=== PATIENT | male | born 1935 | race Caucasian/White ===

== ENCOUNTER → 2025-03-14 11:00 | Outpatient (REF) | payer OTHER, SELFPAY | LOC: HWRCS 11:00 | PROVIDERS: ATTENDING PHYSICIAN Family Medicine | DX: R01.1 Cardiac murmur, unspecified (principal) | CPT/HCPCS: 93306 ==

== ENCOUNTER 2025-06-29 11:52 | Emergency (ER) | payer OTHER, SELFPAY ==
[2025-06-29 11:59] VITALS: BP 169/99
[2025-06-29 12:19] LABS: Hematocrit 44.4 % (39.0-52.0); Hemoglobin 15.8 g/dL (13.0-18.0); Mean Corp Hgb Conc. 35.6 g/dL (33.0-37.0); Mean Corpuscular Volume 87.6 fL (80.0-94.0); Nucleated Red Blood Cells % 0 % (-); Platelet Count 173 10^3/uL (130-400); Red Cell Dist. Width 13.2 % (11.5-14.5)
[2025-06-29 12:42] LABS: ALT (SGPT) 27 U/L (0-50); AST (SGOT) 30 U/L (17-59); Albumin 3.9 g/dl (3.5-5.0); Alkaline Phosphatase 72 U/L (38-126); Blood Urea Nitrogen 21 mg/dl (9-20); Calcium 10.3 mg/dl (8.4-10.2); Carbon Dioxide 26 mmol/L (22-30); Chloride 102 mmol/L (98-107); Glucose 113 mg/dl (70-99); Potassium 3.6 mmol/L (3.5-5.1); Sodium 134 mmol/L (135-145); Total Protein 7.4 g/dl (6.3-8.2); eGFR 57.81
--- NOTE | 2025-06-29 16:59 | ED.GENMED ---
History of Present Illness
<MILLER Gilmore - Last Filed: 06/29/25 18:38>
General
Chief Complaint: DVT/Possible Blood Clot
Source: patient and spouse
Exam Limitations: none
Time Seen by Provider: 06/29/25 16:38
Nursing documentation reviewed up to this point in time: agreed with
History of Present Illness
History of Present Illness:
Patient is a 89-year-old male presents to the ER for evaluation of redness to right lower leg for the past 1-2 days. He has had a fever as high as 101.
He does complain of mild swelling to the right lower leg ankle area I was concerned about a blood clot. No prior history of blood clot.
He denies any injury shortness of breath. 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 In addition he has his a family doctor appointment tomorrow.
Past History
<MILLER Gilmore - Last Filed: 06/29/25 18:38>
Past History
ED Past Medical History: HTN and Other (BPH)
ED Past Surgical History: Tonsilectomy and Other (Nephrectomy, left and right inguinal hernias, BPH)
Social History
Personal:
Living: with family
Employment: Retired
Phy Exam
<MILLER Gilmore - Last Filed: 06/29/25 18:38>
General Physical Exam
General Presentation: no apparent distress
General age: appears stated age
General Skin: warm and dry
General Habitus: normal
General Mental: alert
General Hydration: appears well hydrated
Neurological Exam
Neurological Exam: alert and oriented x3
Musculoskeletal Exam
Musculoskeletal Exam: other (rle with strong pulses + erythema to right lower leg ankle region ; no calf tenderness or swelling to calf )
Skin Exam
Skin Exam: normal color and warm/dry
Psychiatric Exam
Psychiatric Exam: normal mood/affect
Course
<MILLER Gilmore - Last Filed: 06/29/25 18:38>
Orders/Labs/Results
Orders:
Orders
06/29/25 12:04
Venous Doppler Lwr Ext Rt [US Periph Venous LOWER Ext RT] Urgent
Comment:
Reason For Exam: redness/ swelling
06/29/25 12:10
CMP [Comprehensive Metabolic Panel] Urgent
Complete Blood Count/With Diff Urgent
06/29/25 18:33
Doxycycline [Vibramycin] 100 mg PO NOW STA
Abnormal Lab Results
06/29/25
12:10
WBC 11.4 H 10^3/uL
(4.8-10.8)
MCH 31.2 H pg
(27.0-31.0)
Abs Immat Gran (auto) 0.1 H 10^3/uL
(0-0.05)
Absolute Neuts (auto) 8.3 H 10^3/uL
(1.4-6.5)
Absolute Monos (auto) 1.4 H 10^3/uL
(0.1-0.6)
Lymphocytes % 11.5 L %
(20.5-51.1)
Monocytes % 12.6 H %
(1.7-9.3)
Sodium 134 L mmol/L
(135-145)
BUN 21 H mg/dl
(9-20)
Glucose 113 H mg/dl
(70-99)
Calcium 10.3 H mg/dl
(8.4-10.2)
06/29/25 12:10
06/29/25 12:10
Vital Signs
Initial and Last Documented VS:
Initial Vital Signs
Temp Pulse Resp BP Pulse Ox
98.9 F 106 20 169/99 98
06/29/25 11:59 06/29/25 11:59 06/29/25 11:59 06/29/25 11:59 06/29/25 11:59
Last Documented Vital Signs
Temp Pulse Resp BP Pulse Ox
98.0 F 112 18 107/67 93
06/29/25 18:28 06/29/25 18:28 06/29/25 18:28 06/29/25 18:28 06/29/25 18:28
Licensed Pesticide Applicator consulted with Physician
Licensed Pesticide Applicator consulted with physician?: Yes
Name of Physician Consulted: [email or web address]
<Ashwini Roca MD - Last Filed: 06/29/25 18:33>
Orders/Labs/Results
Orders:
Orders
06/29/25 12:04
Venous Doppler Lwr Ext Rt [US Periph Venous LOWER Ext RT] Urgent
Comment:
Reason For Exam: redness/ swelling
06/29/25 12:10
CMP [Comprehensive Metabolic Panel] Urgent
Complete Blood Count/With Diff Urgent
06/29/25 18:33
Doxycycline [Vibramycin] 100 mg PO NOW STA
Abnormal Lab Results
06/29/25
12:10
WBC 11.4 H 10^3/uL
(4.8-10.8)
MCH 31.2 H pg
(27.0-31.0)
Abs Immat Gran (auto) 0.1 H 10^3/uL
(0-0.05)
Absolute Neuts (auto) 8.3 H 10^3/uL
(1.4-6.5)
Absolute Monos (auto) 1.4 H 10^3/uL
(0.1-0.6)
Lymphocytes % 11.5 L %
(20.5-51.1)
Monocytes % 12.6 H %
(1.7-9.3)
Sodium 134 L mmol/L
(135-145)
BUN 21 H mg/dl
(9-20)
Glucose 113 H mg/dl
(70-99)
Calcium 10.3 H mg/dl
(8.4-10.2)
06/29/25 12:10
06/29/25 12:10
Vital Signs
Initial and Last Documented VS:
Initial Vital Signs
Temp Pulse Resp BP Pulse Ox
98.9 F 106 20 169/99 98
06/29/25 11:59 06/29/25 11:59 06/29/25 11:59 06/29/25 11:59 06/29/25 11:59
Last Documented Vital Signs
Temp Pulse Resp BP Pulse Ox
98.0 F 112 18 107/67 93
06/29/25 18:28 06/29/25 18:28 06/29/25 18:28 06/29/25 18:28 06/29/25 18:28
<MILLER Gilmore - Last Filed: 06/29/25 18:38>
MDM/Problems Addressed
Differential Diagnosis Includes:
Not limited to cellulitis less likely DVT
MDM/Problems Addressed:
Patient with mild erythema and swelling to the right lower leg ankle region. Denies any fever she is afebrile here white count very minimally elevated. Symptoms started between 1 and 2 days ago. Ultrasound negative. Compartments are soft. No
prior history of DVT PE. Patient is well-appearing stable for discharge home with outpatient antibiotics. Patient has an appoint with his PCP tomorrow.d/c with ED phycician who evaluated pt and agrees with assessment and plan.
<MILLER Gilmore - Last Filed: 06/29/25 18:38>
*Radiology
Radiology exam reviewed: radiology read reviewed
*Pulse Oximetry
SaO2: 98
Oxygen Mode of Delivery: Room air
Patient hypoxic: no
*Critical Care Note
Total Time (30-74mins, 75-104mins- exclusive of procedures): Not Applicable
ED Attending Note
<MILLER Gilmore - Last Filed: 06/29/25 18:38>
-
Portions of this chart may have been created with voice recognition software.� Occasional wrong word or��sound alike� substitutions may have occurred due to the inherent limitations of voice recognition software.
<Ashwini Roca MD - Last Filed: 06/29/25 18:33>
ED Attending Note
Patient seen and examined by attending physician: Yes
I performed the substantive portion of visit, reviewed & personally made and approve the management plan that is documented in note by myself or GERARDO.: Yes
ED Attending Note:
89-year-old male presents to the ER with low-grade fever that started yesterday associated with redness and swelling of his right lower extremity. He denies diaphoresis, numbness, tingling, weakness. He is recently being treated for 'athletes'.
He denies discharge. Normal pulses on exam, no fluctuance or crepitus. The right lower extremity is noted to be erythematous, slightly warm, with mild edema. Clinically suspect cellulitis will treat with doxycycline patient has follow-up tomorrow.
Discharge Plan
Departure
Patient Disposition: Home (Routine Discharge)
Date of Disposition: 06/29/25
Time of Disposition: 18:35
Patient with high blood pressure during this ER visit?: Yes
Condition: Fair
Covid-19: Not Applicable
Discharge Problem:
Cellulitis of leg, right
Instructions: Cellulitis (Skin Infection), Adult (DC), BLOOD PRESSURE
Prescriptions:
New
doxycycline hyclate 100 mg capsule
100 mg PO BID Qty: 20 0RF
No Action
Amlodipine
1 tab PO HS
Avodart:
1 cap PO DAILY
tamsulosin 0.4 MG capsule
0.8 mg PO DAILY
Lisinopril
1 tab PO DAILY
amoxicillin-pot clavulanate 1 TABLET tablet
1 tab PO Q12 Qty: 20 0RF
Referrals:
Krystina Edward MD [Family Provider, Family Practice]
Activity Restrictions/Additional Instructions:
As discussed start antibiotics tomorrow. You were given the first dose here in the ER. The prescription was sent to pharmacy. Please follow-up with the family doctor scheduled tomorrow. Return if any worsening of symptoms of increased pain
swelling drainage fever chills.
Interventions
Interventions:
*General Assessment Last Done: 06/29/25 11:59
*Neglect/Abuse Screening Last Done: 06/29/25 11:59
*Risk Screen - Suicide (C-SSRS) Last Done: 06/29/25 11:59
Discharge Date and Time
Print Language: GERMAN
[2025-06-29 18:28] VITALS: BP 107/67
[2025-06-29] MEDS: VIBRAMYCIN 100 MG PO (18:42)
== END 2025-06-29 18:55 | disposition home or self-care (01) ==
LOC: EMR 11:52
PROVIDERS: Emergency Medicine; EMERGENCY PHYSICIAN Emergency Medicine; FAMILY PHYSICIAN Family Medicine
DX: L03.115 Cellulitis of right lower limb (principal); I10 Essential (primary) hypertension; N40.0 Benign prostatic hyperplasia without lower urinary tract symptoms; Z90.5 Acquired absence of kidney
CPT/HCPCS: 99284; 80053; 85025; 93971